=== PATIENT | female | born 1945 | race Asian ===

== ENCOUNTER 2016-12-17 08:28 | Day surgery (SDC) | payer MEDICARE, OTHER ==
[2016-12-17] MEDS ORDERED: fentaNYL 100 MCG/2 ML VIAL IVP ONE (09:50)
[2016-12-17] MEDS ORDERED: MIDAZOLAM 2 MG/2 ML VIAL IVP ONE (09:50)
[2016-12-17] MEDS ORDERED: LACTATED RINGERS 1,000 ML IV ONE (09:54)
== END 2016-12-17 08:29 | disposition home or self-care (01) ==
PROC: 0DBN8ZX Excision of Sigmoid Colon, Via Natural or Artificial Opening Endoscopic, Diagnostic (ICD-10-PCS; 2016-12-17)
PROC: 0DBK8ZX Excision of Ascending Colon, Via Natural or Artificial Opening Endoscopic, Diagnostic (ICD-10-PCS; principal; 2016-12-17 09:30)
DX: Z12.11 Encounter for screening for malignant neoplasm of colon (principal); D12.3 Benign neoplasm of transverse colon; D12.5 Benign neoplasm of sigmoid colon; E11.9 Type 2 diabetes mellitus without complications; I10 Essential (primary) hypertension; E03.9 Hypothyroidism, unspecified; Z79.84 Long term (current) use of oral hypoglycemic drugs; Z88.5 Allergy status to narcotic agent
CPT/HCPCS: 45380; J7120

== ENCOUNTER 2017-07-08 09:55 | Outpatient (CLI) | payer MEDICARE, OTHER | END 2017-07-08 09:56 | disposition short-term general hospital (02) | LOC: EMS 09:55 | PROVIDERS: ATTEND Surgery | DX: M25.551 Pain in right hip (principal) | CPT/HCPCS: A0425; A0427; A0888 ==

== ENCOUNTER 2017-07-22 14:05 | Outpatient (CLI) | payer MEDICARE, OTHER ==
--- NOTE | 2017-07-23 16:05 | DEXA Report ---
DEXA SCAN: 07/22/2017 HISTORY: Primary ovarian failure. TECHNIQUE: Dual energy x-ray absorptiometry (DXA) was performed on a [employer] system. Regions measured are the AP spine, femoral neck, and, if needed, forearm. COMPARISON: None. In accordance with the International Society for Clinical Densitometry (ISCD) guidelines, data from previous exams may be reanalyzed using current recommendations and techniques. This is done to allow a more accurate basis for comparison with the current study. FINDINGS LUMBAR SPINE DATA: REGION BMD (g/cm/cm) T-SCORE Z-SCORE L1 0.905 -1.9 -0.1 L2 1.001 -1.7 0.1 L3 1.081 -1.0 0.8 L4 1.266 0.6 2.3 TOTAL 1.082 -0.8 0.9 NOTE: All evaluable vertebrae are used for classification. HIP DATA: REGION BMD (g/cm/cm) T-SCORE Z-SCORE Neck 0.947 -0.7 1.1 TOTAL 1.001 -0.1 1.5 NOTE: The femoral neck or total proximal femur, whichever is lowest, is used for classification. IMPRESSION THE WHO CLASSIFICATION BASED ON THE INTERNATIONAL REFERENCE STANDARD: NORMAL. FRACTURE RISK: LOW. RECOMMENDATION: Patients with diagnosis of osteoporosis or osteopenia should have regular bone mineral density assessment. For those eligible for Medicare, routine testing is allowed once every 2 years. Testing frequency can be increased for patients who have rapidly progressing disease or for those who are receiving medical therapy to restore bone mass. COMMENT: World Health Organization (WHO) definitions for osteoporosis and osteopenia: NORMAL BMD: T-score at -1.0 or higher, fracture risk is low. OSTEOPENIA BMD: T-score between -1.0 and -2.5, fracture risk is increased. OSTEOPOROSIS BMD: T-score at -2.5 or lower, fracture risk high. National Osteoporosis Foundation recommends: 1. Obtain adequate dietary calcium (at least 1200 mg per day) and vitamin D (400 -800 international units per day). 2. Participate, as appropriate, in regular weightbearing and muscle- strengthening exercise. 3. Avoid tobacco use and reduce alcohol and caffeine intake. 4. For more detailed information see the website at www.NOF.org. MTDD
== END 2017-07-22 14:06 | disposition home or self-care (01) ==
LOC: DI 14:05
PROVIDERS: ATTEND Internal Medicine
DX: M81.0 Age-related osteoporosis without current pathological fracture (principal)
CPT/HCPCS: 77080

== ENCOUNTER 2017-11-27 10:37 | Outpatient (CLI) | payer MEDICARE, OTHER | END 2017-11-27 10:38 | disposition home or self-care (01) | LOC: DI.N 10:37 | PROVIDERS: ATTEND Internal Medicine | DX: Z53.9 Procedure and treatment not carried out, unspecified reason (principal) ==

== ENCOUNTER 2017-11-27 10:59 | Outpatient (CLI) | payer MEDICARE, OTHER ==
--- NOTE | 2017-12-02 17:07 | Mammography Report ---
DIGITAL SCREENING MAMMOGRAM: 11/27/2017 CLINICAL INDICATION: A 72-year-old nulliparous patient for screening. COMPARISON: Films from [place], [place] dated 10/15/2016, 10/18/2015, 11/13/2014, 10/25/2013, 10/04/2012, 09/30/2011, 09/23/2010, 09/20/2009. TECHNIQUE: Routine CC and MLO projections were obtained of the breasts. FINDINGS: The breasts demonstrate scattered fibroglandular densities bilaterally. A few coarse, typically benign calcifications are present. No suspicious masses, clustered microcalcifications, or regions of architectural distortion are identified. IMPRESSION: BENIGN FINDINGS. RECOMMENDATION: Routine annual screening unless otherwise clinically indicated. BIRADS CATEGORY 2 - BENIGN FINDINGS. STANDARD QUALIFYING STATEMENTS: 1. This examination was reviewed with the aid of Computer-Aided Detection (CAD). 2. A negative or benign imaging report should not delay biopsy if clinically suspicious findings are present. Consider surgical consultation if warranted. More than 5% of cancers are not identified by imaging. 3. Dense breasts may obscure an underlying neoplasm. TD: 12/02/2017 17:06
== END 2017-11-27 11:00 | disposition home or self-care (01) ==
LOC: DI.N 10:59
PROVIDERS: ATTEND Internal Medicine
DX: Z12.31 Encounter for screening mammogram for malignant neoplasm of breast (principal)
CPT/HCPCS: 77067

== ENCOUNTER 2018-10-22 10:47 | Outpatient (CLI) | payer MEDICARE, OTHER ==
--- NOTE | 2018-10-22 13:16 | XRAY Report ---
Reason: AGE-RELATED OSTEOPOROSIS/LOW BACK PAIN Procedure Date: 10/22/2018 Accession Number: [id number] / [id number] Procedure: XR - Hip w/Pelvis 2-3V RT CPT Code: FULL RESULT: EXAM: RIGHT HIP RADIOGRAPHY EXAM DATE: 10/22/2018 11:08 AM. CLINICAL HISTORY: Age-related osteoporosis/low back pain. COMPARISON: LUMBAR SPINE 2 VIEW 10/22/2018 11:08 AM. TECHNIQUE: 2 views. FINDINGS: Bones: The bones are qualitatively osteopenic; this limits evaluation for underlying fractures or masses. No fractures or bone lesion. Joints: Abnormal appearance of the right sacroiliac joint is also identified on the lumbar radiographs obtained the same day. Mild bilateral narrowing of the femoroacetabular joints. Pubic symphysis is normal. The left sacroiliac joint appears normal. Soft Tissues: Normal. No soft tissue swelling. IMPRESSION: Questionable appearance of the right sacroiliac joint. If pain is in this region, recommend MRI pelvis without contrast to exclude insufficiency fracture. RADIA
--- NOTE | 2018-10-22 13:48 | XRAY Report ---
Reason: LOW BACK PAIN Procedure Date: 10/22/2018 Accession Number: [id number] / [id number] Procedure: XR - Lumbar Spine 2 View CPT Code: FULL RESULT: EXAM: LUMBOSACRAL SPINE RADIOGRAPHY EXAM DATE: 10/22/2018 11:08 AM. CLINICAL HISTORY: Low back pain. COMPARISONS: None. TECHNIQUE: 2 views. FINDINGS: Alignment: Preserved. Bones: The bones are qualitatively osteopenic; this limits evaluation for underlying fractures or masses. Five sub-rmi-cwyjffk lumbar vertebral bodies are present. Abnormal outline of the vertebral body of L5 on the lateral radiograph and sclerotic appearance of L5 on the frontal radiograph, fracture in this region is not excluded. Disks: This joint spaces are relatively preserved. Facets: Multilevel facet arthropathy which is severe at L5. Sacroiliac Joints: Abnormal appearance with suggestion of cortical interruption inferiorly along the right sacroiliac joint, possibly projectional. Left SI joint is unremarkable. Soft Tissues: Aortic calcifications. IMPRESSION: Osteopenia with abnormal appearance of L5 and the right sacroiliac joint. Recommend MRI of the pelvis without contrast for clarification if the findings match the location of the patient's pain. RADIA
== END 2018-10-22 10:48 | disposition home or self-care (01) ==
LOC: DI 10:47
PROVIDERS: ATTEND Internal Medicine
DX: M47.9 Spondylosis, unspecified (principal); M81.0 Age-related osteoporosis without current pathological fracture; R93.7 Abnormal findings on diagnostic imaging of other parts of musculoskeletal system
CPT/HCPCS: 72100

== ENCOUNTER 2018-12-01 11:25 | Outpatient (CLI) | payer MEDICARE, OTHER ==
--- NOTE | 2018-12-01 16:05 | Mammography Report ---
Reason: SCREENING MAMMO Procedure Date: 12/01/2018 Accession Number: [id number] / [id number] Procedure: MGN - Screening Mammo Dig Bilat CPT Code: FULL RESULT: EXAM: Screening Mammo Dig Bilat DATE: 12/01/2018 11:48 AM CLINICAL HISTORY: Screening examination. TECHNIQUE: (B) - Bilateral CC and MLO views were obtained. COMPARISON: None PARENCHYMAL PATTERN: (A) - The breasts demonstrate scattered fibroglandular densities bilaterally. FINDINGS: There are no suspicious masses, calcifications, or areas of distortion. IMPRESSION: Negative examination. BI-RADS category 1. RECOMMENDATION: (ANNUAL) - Recommend routine annual screening mammography. BI-RADS CATEGORY: (1) - Negative. STANDARD QUALIFYING STATEMENTS: 1. This examination was not reviewed with the aid of Computer-Aided Detection (CAD). 2. A negative or benign imaging report should not preclude biopsy if clinically suspicious findings are present. 3. Dense breasts may obscure an underlying neoplasm. 4. This examination was reviewed without the aid of 3D breast imaging (tomosynthesis).
== END 2018-12-01 11:26 | disposition home or self-care (01) ==
LOC: DI.N 11:25
PROVIDERS: ATTEND Internal Medicine
DX: Z12.31 Encounter for screening mammogram for malignant neoplasm of breast (principal)
CPT/HCPCS: 77067

== ENCOUNTER 2020-04-10 14:14 | Outpatient (CLI) | payer MEDICARE, OTHER ==
--- NOTE | 2020-04-10 14:56 | DEXA Report ---
PROCEDURE: Dexa Spine and/or Hip INDICATIONS: POST MENOPAUSAL TECHNIQUE: Dual energy x-ray absorptiometry (DXA) was performed on a [employer] System. Regions measur ed are the AP Spine, femoral neck, and if needed forearm. COMPARISON: DEXA, 12/02/2014 and 07/22/2017. FINDINGS: Lumbar Spine: Bone Mineral Density 1.180 g/cm/cm,T score 0.0, despite 9.1%. Left Hip: Bone Mineral Density 0.959 g/cm/cm,T score -0.4, decreased by 4.2%. Left Femoral Neck: Bone Mineral Density 0.922 g/cm/cm, T score -0.8. (T score greater or equal to -1.0: NORMAL) (T score from -1.1 to -2.4: OSTEOPENIA) (T score less than or equal to -2.5 to: OSTEOPOROSIS) Impression: Based on WHO criteria, the patient's bone mineral density is within normal limits. Compar ed to March the last examination dated 07/22/2017, the patient's bone mineral density has declined b y 4.2% in left hip and wrist by 9.1% in lumbar spine. Part of the increased density in the lumbar spi ne could be caused by degenerative change. Patients with diagnosis of osteoporosis or osteopenia should have regular bone mineral density assess ment. For those eligible for Medicare, routine testing is allowed once every 2 years. Testing frequ ency can be increased for patients who have rapidly progressing disease or for those who are receivin g medical therapy to restore bone mass. Reviewed by: Migel Walter MD on 04/10/2020 2:55 PM PDT Approved by: Migel Walter MD on 04/10/2020 2:55 PM PDT Station ID: [id number]
== END 2020-04-10 14:15 | disposition home or self-care (01) ==
LOC: DI 14:14
PROVIDERS: ATTEND Internal Medicine
DX: N95.8 Other specified menopausal and perimenopausal disorders (principal)
CPT/HCPCS: 77080

== ENCOUNTER 2021-04-15 13:26 | Outpatient (CLI) | payer MEDICARE, OTHER ==
--- NOTE | 2021-04-16 15:25 | Mammography Report ---
BILATERAL DIGITAL SCREENING MAMMOGRAM 3D/2D: 04/15/2021 CLINICAL: Routine screening. Comparison is made to exams dated: 12/01/2018 mammogram, 11/27/2017 mammogram, 10/04/2012 mammogram, mammogram, 09/23/2010 mammogram - [facility], and 09/20/2009 mammogram - [facility]. There are scattered fibroglandular elements in both breasts. No significant masses, calcifications, or other findings are seen in either breast. There has been no significant interval change. IMPRESSION: NEGATIVE There is no mammographic evidence of malignancy. A 1 year screening mammogram is recommended. This exam was interpreted at Station ID: [id number]. NOTE: For mammograms, a report in lay terms will be sent to the patient. Approximately 15% of breast malignancies will not be visualized mammographically. In the management of a palpable breast mass, a negative mammogram must not discourage biopsy of a clinically suspicious lesion. Electronically Signed By: Abhishek Alvarado M.D. [email or web address]:04/15/2021 17:00:47 ACR BI-RADS Category 1: Negative [id number] PARENCHYMAL PATTERN: (A) - The breast(s) demonstrate(s) scattered fibroglandular densities. BI-RADS CATEGORY: (1) - 1 RECOMMENDATION: (ANNUAL) - Recommend routine annual screening mammography. [id number] 1 year screening LATERALITY: (B)
== END 2021-04-15 13:27 | disposition home or self-care (01) ==
LOC: DI.N 13:26
DX: Z12.31 Encounter for screening mammogram for malignant neoplasm of breast (principal)

== ENCOUNTER 2021-04-15 14:45 | Outpatient (CLI) | payer MEDICARE, OTHER ==
--- NOTE | 2021-04-15 16:10 | XRAY Report ---
PROCEDURE: Wrist 4 View RT INDICATIONS: RIGHT WRIST AND KNEE PAIN TECHNIQUE: 4 views of the wrist were acquired. COMPARISON: None FINDINGS: Bones: No fractures or dislocations. Osteoarthritic changes are noted along radial aspect of right wrist more prominent at radiocarpal joint. No suspicious bony lesions. Scaphoid view: Scaphoid is intact. No evidence of osteonecrosis. Soft tissues: Tiny calcification adjacent to tip of ulnar styloid is noted suggestive of old healed i njury. IMPRESSION: No acute wrist fracture or dislocation. Mild wrist joint osteoarthritis. Suggestion of old injury inv olving tip of ulnar styloid. Reviewed by: Denis Georges MD on 04/15/2021 4:09 PM PDT Approved by: Denis Georges MD on 04/15/2021 4:09 PM PDT Station ID: [id number]
--- NOTE | 2021-04-15 16:11 | XRAY Report ---
PROCEDURE: Knee 3 View RT INDICATIONS: RIGHT WRIST AND KNEE PAIN TECHNIQUE: 3 views of the right knee(s) were acquired. COMPARISON: None. FINDINGS: Bones: No fractures or dislocations. Mild to moderate tricompartmental osteoarthritis is seen more prominent in medial femoral tibial compartment. No suspicious bony lesions. Soft tissues: Linear calcification along medial periphery of medial femoral condyle is seen likely r epresent old injury involving medial collateral ligament. Small suprapatellar joint effusion is seen. No suspicious soft tissue calcifications. IMPRESSION: Mild to moderate tricompartment osteoarthritis and suggestion of old injury involving me dial collateral ligament. No acute fracture or dislocation. Small joint effusion. Reviewed by: Denis Georges MD on 04/15/2021 4:10 PM PDT Approved by: Denis Georges MD on 04/15/2021 4:10 PM PDT Station ID: [id number]
== END 2021-04-15 23:59 | disposition home or self-care (01) ==
LOC: DI.N 14:45
PROVIDERS: ATTEND Internal Medicine
DX: M19.031 Primary osteoarthritis, right wrist (principal); M17.11 Unilateral primary osteoarthritis, right knee; M25.461 Effusion, right knee

== ENCOUNTER 2022-11-05 14:39 | Emergency (ER) | payer MEDICARE, OTHER ==
[2022-11-05 15:08] LABS: BASOPHILS # (AUTO) 0.1 10^3/uL (0.0-0.1); EOSINOPHILS # (AUTO) 0.2 10^3/uL (0.0-0.7); EOSINOPHILS % (AUTO) 1.4 %; HCT - HEMATOCRIT 41.7 % (37.0-47.0); HGB - HEMOGLOBIN 13.5 g/dL (12.0-16.0); LYMPHOCYTES # (AUTO) 2.2 10^3/uL (1.5-3.5); LYMPHOCYTES % (AUTO) 19.3 %; MEAN CORPUSCULAR HEMOGLOBIN 29.5 pg (27.0-31.0); MEAN CORPUSCULAR HGB CONC 32.4 g/dL (32.0-36.0); MEAN PLATELET VOLUME 9.5 fL (7.9-10.8); MONOCYTES # (AUTO) 0.8 10^3/uL (0.0-1.0); NEUTROPHILS # (AUTO) 8.2 10^3/uL (1.5-6.6); PLT - PLATELET COUNT 300 10^3/uL (130-450); RED BLOOD COUNT 4.58 10^6/uL (4.20-5.40); RED CELL DISTRIBUTION WIDTH 12.5 % (12.0-15.0); WHITE BLOOD COUNT 11.5 x10^3/uL (4.8-10.8)
[2022-11-05 15:19] LABS: ALBUMIN 4.4 g/dL (3.2-5.5); ALBUMIN/GLOBULIN RATIO 1.5 (1.0-2.2); BILIRUBIN,TOTAL 0.5 mg/dL (0.2-1.0); CALCIUM 9.7 mg/dL (8.5-10.3); CREATININE 0.5 mg/dL (0.4-1.0); TOTAL PROTEIN 7.4 g/dL (6.7-8.2)
[2022-11-05] MEDS ORDERED: MAG HYDROX/AL HYDROX/SIMETH 30 ML UDC PO STA (16:36)
[2022-11-05] MEDS ORDERED: HYDROmorphone 1 MG/ML CARPUJECT IVP STA (16:36)
[2022-11-05] MEDS ORDERED: SODIUM CHLORIDE 0.9% 1,000 ML IV STA (16:36)
[2022-11-05] MEDS ORDERED: LIDOCAINE VISCOUS 2% 15 ML UDC MM STA (16:36)
[2022-11-05] MEDS ORDERED: ONDANSETRON 4 MG/2 ML VIAL IVP STA (16:36)
--- NOTE | 2022-11-05 16:41 | ED Physician Documentation ---
History of Present Illness - Stated complaint Stated Complaint: CHEST/SIDE PX - Chief complaint Chief Complaint: Abd Pain - History obtained from History obtained from: Patient - Additonal information Additional information: The patient comes to the emergency department chief complaint of left upper quadrant abdominal pain that wraps around to her left flank and into her Epigastric area. She states it does not go up into her chest. It is a deep ache but does not involve any burning. The patient denies nausea or vomiting. No diarrhea or constipation. No dysuria. No fevers or chills. The patient has never had pain like this before. She does not have any known stomach issues. She states she did just have a root canal done, but is not on any ibuprofen or antibiotics following this. PD PAST MEDICAL HISTORY - Past Medical History Past Medical History: Yes Cardiovascular: None Respiratory: None Neuro: None Endocrine/Autoimmune: Type 2 diabetes, HyPOthyroidism GI: GERD, Colon polyps ROOM INSPECTOR: None : None HEENT: None Psych: None Musculoskeletal: None Derm: None - Past Surgical History Past Surgical History: Yes /ROOM INSPECTOR: Hysterectomy - Present Medications Home Medications: Ambulatory Orders Medication Instructions Recorded Confirmed Calcium Carbonate [[id number]] 500 mg PO DAILY 12/16/16 12/17/16 Cholecalciferol (Vitamin D3) 1,000 unit PO TIDWM 12/16/16 12/17/16 [Vitamin D3] Flaxseed Oil 1,000 mg PO DAILY 12/16/16 12/17/16 Levothyroxine Sodium [Synthroid] 75 mcg PO DAILY 12/16/16 12/17/16 Multivitamin/Iron/Folic Acid 1 each PO DAILY 12/16/16 12/17/16 [Centrum Women Tablet] [place]-3S/Dha/Epa/Fish Oil [Fish 1 each PO DAILY 12/16/16 12/17/16 Oil 1,200 mg Softgel] Pravastatin [Pravachol] 20 mg PO DAILY 12/16/16 12/17/16 metFORMIN [Glucophage] 500 mg PO BID 12/16/16 12/17/16 Famotidine [Pepcid] 20 mg PO BID #60 tablet 11/05/22 Omeprazole 40 mg PO DAILY #30 cap 11/05/22 Sucralfate [Carafate] 1 gm PO ACHS #60 tablet 11/05/22 - Allergies Allergies/Adverse Reactions: Allergies Allergy/AdvReac Type Severity Reaction Status Date / Time morphine AdvReac Nausea Verified 12/17/16 08:57 - Social History Does the pt smoke?: No Smoking Status: Never smoker Does the pt drink ETOH?: No Does the pt have substance abuse?: No - Immunizations Immunizations are current?: Yes - POLST Patient has POLST: No PD ED PE NORMAL - Vitals Vital signs reviewed: Yes - General General: Alert and oriented X 3, No acute distress, Well developed/nourished, Other (The patient is visibly uncomfortable and grimacing, rubbing her left upper quadrant, but otherwise no apparent distress) - HEENT HEENT: Atraumatic, PERRL, EOMI, Moist mucous membranes - Neck Neck: Supple, no meningeal sign - Cardiac Cardiac: RRR, No murmur, Strong equal pulses - Respiratory Respiratory: No respiratory distress, Clear bilaterally - Abdomen Abdomen: Soft, Non distended, Other (Moderate tenderness epigastric region, no rebound or guarding.) - Derm Derm: Normal color, Warm and dry, No rash - Extremities Extremities: No deformity, No edema - Neuro Neuro: Alert and oriented X 3 - Psych Psych: Normal mood, Normal affect Results - Vitals Vitals: Oxygen O2 Source Room air - Labs Labs: Microbiology 11/05/22 16:00 Urine Culture - Final Urine,Random LESS THAN 10,000 COLONIES/ML polymicrobial growth including potential pathogens. This is suggestive of skin or other contamination. Laboratory Tests 11/05/22 11/05/22 11/05/22 15:02 15:02 16:00 WBC 11.5 H RBC 4.58 Hgb 13.5 Hct 41.7 MCV 91.0 MCH 29.5 MCHC 32.4 RDW 12.5 Plt Count 300 MPV 9.5 Neut # (Auto) 8.2 H Lymph # (Auto) 2.2 Ralls # (Auto) 0.8 Eos # (Auto) 0.2 Baso # (Auto) 0.1 Absolute Nucleated RBC 0.00 Nucleated RBC % 0.0 Sodium 137 Potassium 4.0 Chloride 101 Carbon Dioxide 25 Anion Gap 11.0 BUN 10 Creatinine 0.5 Estimated GFR (MDRD) 120 Glucose 123 H Calcium 9.7 Total Bilirubin 0.5 AST 24 ALT 15 Alkaline Phosphatase 72 Total Protein 7.4 Albumin 4.4 Globulin 3.0 Albumin/Globulin Ratio 1.5 Lipase 40 Urine Color YELLOW Urine Clarity CLEAR Urine pH 8.0 H Ur Specific [place] 1.015 Urine Protein NEGATIVE Urine Glucose (UA) NEGATIVE Urine Ketones NEGATIVE Urine Occult Blood NEGATIVE Urine Nitrite NEGATIVE Urine Bilirubin NEGATIVE Urine Urobilinogen 0.2 (NORMAL) Ur Leukocyte Esterase SMALL H Urine RBC 0-5 Urine WBC 4-5 Ur Squamous Epith Cells RARE Squamous Urine Bacteria Rare Urine Mucus Few Strands Ur Microscopic Review INDICATED Urine Culture Comments INDICATED - Rads (name of study) CT abd/pelvis Relevant Findings:: Final report received, See rad report (possible enteritis; constipation) PD Medical Decision Making - ED course Complexity details: reviewed results, re-evaluated patient, considered differential, d/w patient, d/w family ED course: The patient was treated symptomatically in the ED with IV fluids, Zofran, Dilaudid, and GI cocktail. She was worked up with laboratory studies including CBC and ER abdominal panel, which were unremarkable. Her urinalysis was also negative. She was sent for a CT scan of the abdomen and pelvis with IV contrast, which showed some constipation and possibly, enteritis, though the pt did not show any clinical signs of enteritis. The pt was stable for d/c home. I suspect her sx are coming from her stomach, and have sent a prescription for Omeprazole for her. We have discussed the usual indications for follow-up and return. Departure - Departure Disposition: 01 Home, Self Care Clinical Impression: Abdominal pain Qualifiers: Abdominal location: unspecified location Qualified Code(s): R10.9 - Unspecified abdominal pain Gastritis Qualifiers: Gastritis type: unspecified gastritis Chronicity: acute Gastritis bleeding: without bleeding Qualified Code(s): K29.00 - Acute gastritis without bleeding Condition: Good Instructions: ED PUD Vs Gastritis Follow-Up: Neftaly Blue MD [Primary Care Provider] - Within 1 week Prescriptions: Sucralfate [Carafate] 1 gm PO ACHS #60 tablet Omeprazole 40 mg PO DAILY #30 cap Famotidine [Pepcid] 20 mg PO BID #60 tablet Comments: We will increase your home omeprazole to 40 mg by mouth daily. Your CT scan does not show any acute abnormalities. There was a question of inflammation in the left lower quadrant of your abdomen, but you have no pain or tenderness here. It is not clear what has caused your stomach to be inflamed and painful, but most likely, something has irritated the lining of your stomach. In general, this condition will pass on its own. However, if it becomes chronic, you will need to follow-up with your doctor to discuss having an endoscopy done to look inside and see if you have an ulcer. For now please take the antacid medicine that has been prescribed. You may also get some xdya-gir-gibkigw Maalox to help settle your stomach. The prescription for your omeprazole has been electronically transmitted to the [facility] pharmacy in [place], your pharmacy of choice on record. Please return if you worsen. Discharge Date/Time: 11/05/22 19:29
[2022-11-05 17:01] LABS: BILIRUBIN,URINE NEGATIVE (NEGATIVE); GLUCOSE, URINE (UA) NEGATIVE (NEGATIVE); KETONES,URINE (UA) NEGATIVE (NEGATIVE); LEUKOCYTE ESTERASE, URINE SMALL (NEGATIVE); NITRITE,URINE NEGATIVE (NEGATIVE); OCCULT BLOOD,URINE NEGATIVE (NEGATIVE); PROTEIN,URINE NEGATIVE (NEGATIVE); UROBILINOGEN,URINE 0.2 (NORMAL) E.U./dL (NORMAL)
[2022-11-05 17:02] LABS: CLARITY,URINE CLEAR (CLEAR)
[2022-11-05] MEDS ORDERED: iohexoL-300 100 ML VIAL ONE (17:03)
[2022-11-05 17:09] LABS: BACTERIA,URINE Rare /HPF (None Seen); MUCUS,URINE Few Strands; RBC,URINE 0-5 /HPF (0-5); SQUAMOUS EPITHELIAL CELL,UR RARE Squamous (<= Few)
[2022-11-05] MEDS ORDERED: PANTOPRAZOLE 40 MG TABLET PO STA (17:57)
--- NOTE | 2022-11-05 18:34 | CT Report ---
PROCEDURE: ABDOMEN/PELVIS W INDICATIONS: L abd pain CONTRAST: 100mL Omni 300 TECHNIQUE: After the administration of IV contrast, 5 mm thick sections acquired from the diaphragms to the symp hysis. 5 mm thick coronal and sagittal reformats were acquired. For radiation dose reduction, the f ollowing was used: automated exposure control, adjustment of mA and/or kV according to patient size. COMPARISON: None. FINDINGS: Image quality: Excellent. ABDOMEN: Lung bases: Atelectasis in posterior lateral periphery of bilateral lung bases are seen. Heart size i s enlarged, no pericardial effusion. Solid organs: Liver and spleen are normal in size and enhancement. Gallbladder is distended. No gal lstone is seen. No gallbladder wall thickening or pericholecystic fluid. Biliary system is non dilat ed. Pancreas enhances normally. No adrenal nodules. Kidneys demonstrate normal size and enhancemen t, without hydronephrosis. Peritoneum and bowel: There is significant fecal stasis throughout the colon. No bowel obstruction. A few fluid-filled small bowel loops are noted in left lower quadrant abdomen with mild bowel wall thi ckening and enhancement concerning for infectious or inflammatory enteritis. No CT evidence of acute appendicitis. No other area of abnormal bowel wall thickening. No free fluid of free air. Nodes and vessels: No retroperitoneal or mesenteric adenopathy by size criteria. Aorta and inferior vena cava are normal in size. Miscellaneous: No ventral hernias. PELVIS: Genitourinary: Bladder wall thickness is normal. Miscellaneous: No inguinal hernias or adenopathy. Bones: No suspicious bony lesions. No vertebral body compression fractures. IMPRESSION: 1. Multiple fluid-filled small bowel loops seen in left lower quadrant abdomen with mild wall thicken ing and enhancement concerning for infectious or inflammatory enteritis. 2. Moderate constipation. No other area of abnormal bowel wall thickening. No abscess collection. No free fluid of free air. Normal appendix. Reviewed by: Denis Georges MD on 11/05/2022 5:33 PM AKDT Approved by: Denis Georges MD on 11/05/2022 5:33 PM AKDT Station ID: [id number]
[2022-11-05 19:07] VITALS: BP 126/66
--- NOTE | 2022-11-05 19:14 | ED Physician Documentation ---
ED Addendum - Addendum Addendum: 11/05/22 19:12 Patient is a 77-year-old female that was signed out to me by Dr. Warren awaiting CT scan results. The patient has left upper quadrant abdominal pain that resolved with administration of a GI cocktail. She is currently asymptomatic. Upon my review of her CT scan she does appear to have a thickened duodenum and stomach that would be consistent with gastritis. There are fluid-filled small bowel loops in the left lower quadrant with mild wall thickening and enhanceme nt, possible infectious versus inflammatory enteritis. Patient denies any symptoms of enteritis. No lower abdominal pain. No diarrhea. No blood in the stool. Departure - Departure Disposition: Home, Self Care Clinical Impression: Abdominal pain Qualifiers: Abdominal location: unspecified location Qualified Code(s): R10.9 - Unspecified abdominal pain Gastritis Qualifiers: Gastritis type: unspecified gastritis Chronicity: acute Gastritis bleeding: without bleeding Qualified Code(s): K29.00 - Acute gastritis without bleeding Condition: Good Instructions: ED PUD Vs Gastritis Follow-Up: Neftaly Blue MD [Primary Care Provider] - Within 1 week Prescriptions: Sucralfate [Carafate] 1 gm PO ACHS #60 tablet Omeprazole 40 mg PO DAILY #30 cap Famotidine [Pepcid] 20 mg PO BID #60 tablet Comments: We will increase your home omeprazole to 40 mg by mouth daily. Your CT scan does not show any acute abnormalities. There was a question of inflammation in the left lower quadrant of your abdomen, but you have no pain or tenderness here. It is not clear what has caused your stomach to be inflamed and painful, but most likely, something has irritated the lining of your stomach. In general, this condition will pass on its own. However, if it becomes chronic, you will need to follow-up with your doctor to discuss having an endoscopy done to look inside and see if you have an ulcer. For now please take the antacid medicine that has been prescribed. You may also get some [id number] Maalox to help settle your stomach. The prescription for your omeprazole has been electronically transmitted to the [facility] pharmacy in [place], your pharmacy of choice on record. Please return if you worsen.
[2022-11-05] MEDS ORDERED: iohexoL-300 100 ML VIAL IVP ONE (19:27)
== END 2022-11-05 19:29 | disposition home or self-care (01) ==
LOC: ED 14:39
DX: K29.00 Acute gastritis without bleeding (principal); R10.12 Left upper quadrant pain; E11.9 Type 2 diabetes mellitus without complications; E03.9 Hypothyroidism, unspecified; K21.9 Gastro-esophageal reflux disease without esophagitis; Z79.899 Other long term (current) drug therapy; Z79.84 Long term (current) use of oral hypoglycemic drugs
CPT/HCPCS: 36415; 80053; 81001; 81003; 83690; 85025; 87086; 96374; 96375; 99283